=== PATIENT | male | born 1995 | race Caucasian/White ===

== ENCOUNTER 2016-09-22 19:38 | Emergency (ER) | payer MEDICARE | END 2016-09-22 20:04 | disposition home or self-care (01) | LOC: ER 19:38 | DX: T23.152A Burn of first degree of left palm, initial encounter (principal); T31.0 Burns involving less than 10% of body surface; X10.2XXA Contact with fats and cooking oils, initial encounter; Y92.511 Restaurant or cafe as the place of occurrence of the external cause; Y99.0 Civilian activity done for income or pay; F17.210 Nicotine dependence, cigarettes, uncomplicated ==

== ENCOUNTER 2016-10-03 22:30 | Emergency (ER) | payer MEDICARE | END 2016-10-04 01:08 | disposition home or self-care (01) | LOC: ER 22:30 | DX: S30.0XXA Contusion of lower back and pelvis, initial encounter (principal); W18.30XA Fall on same level, unspecified, initial encounter | CPT/HCPCS: 72131; 99283-25 ==